=== PATIENT | female | born 1955 | race Two or more races ===

== ENCOUNTER 2018-01-20 19:46 | Outpatient (CLI) | payer OTHER ==
--- NOTE | 2018-01-21 12:29 | Ultrasound Report ---
PELVIC ULTRASOUND: 01/20/2018 CLINICAL INDICATION: Leiomyoma. TECHNIQUE: Transabdominal pelvic ultrasound performed for global evaluation. Transvaginal pelvic ultrasound performed for detailed evaluation. Real-time scanning performed and static images obtained. FINDINGS: The uterus is anteverted, measuring 7.0 x 4.9 x 3.9 cm. There is a fundal intramural leiomyoma measuring 3.5 x 2.8 x 2.4 cm. This obscures the endometrium, but where visualized the endometrium measures 2 mm. Neither ovary was confidently identified on transabdominal or transvaginal imaging. Trace fluid is noted in the right adnexa. No adnexal mass is identified. IMPRESSION: FUNDAL LEIOMYOMA, MEASURING 3.5 CM. TD: 01/21/2018 12:28
== END 2018-01-20 19:47 | disposition home or self-care (01) ==
LOC: DI 19:46
PROVIDERS: ATTEND Obstetrics & Gynecology
DX: D25.9 Leiomyoma of uterus, unspecified (principal)
CPT/HCPCS: 76830; 76856